=== PATIENT | female | born 1990 | race American Indian/Alaskan Native ===

== ENCOUNTER 2018-01-09 15:07 | Outpatient (CLI) | payer MEDICAID ==
--- NOTE | 2018-01-09 18:18 | XRay Report ---
FINAL REPORT EXAM: XR KNEE BILAT 4+V HISTORY: BILATERAL KNEE PAIN TECHNIQUE: 4 views of the left knee 4 views of the right knee PRIORS: None. FINDINGS: Left knee without evidence of fracture, dislocation, or joint effusion. No focal osseous lesion. No evidence of joint space narrowing. Right knee contains minimal degenerative articular surface irregularity in the medial femoral condyle and patellar articular surface. No acute fracture, dislocation, joint effusion, or joint space narrowing. IMPRESSION: No acute skeletal pathology in the right knee and left knee Minimal articular surface irregularity may reflect early degenerative change in the right knee
== END 2018-01-09 15:08 | disposition home or self-care (01) ==
LOC: SPVIMAG 15:07
PROVIDERS: ATTEND Orthopaedic Surgery Sports Medicine
DX: M25.561 Pain in right knee (principal); M25.562 Pain in left knee